=== PATIENT | male | born 1985 | race Caucasian/White ===

== ENCOUNTER 2017-08-19 20:47 | Emergency (ER) | payer BC, OTHER ==
[2017-08-19 21:18] VITALS: RESP 18
[2017-08-19] MEDS ORDERED: cefTRIAXone 1,000 MG VIAL (IM USE) IM STA (21:36)
--- NOTE | 2017-08-19 21:44 | ED ---
Recheck HPI - General Chief Complaint: Recheck/Abnormal Lab/Rx Stated Complaint: Left Arm Laceration/Infection Time Seen by Provider: 08/19/17 21:24 Source: patient, RN notes reviewed Mode of arrival: ambulatory Limitations: no limitations - History of Present Illness Initial Comments: This is a 31-year-old male who presents to the emergency department with chief complaint of left forearm infection. Patient states that approximately 10-12 days ago he sustained some abrasions to his left forearm from fiberglass material. On he noticed that the abrasions had become swollen and red so he cleaned and covered them. He states that the swelling and redness went down on Sunday, however on Sunday it had become swollen again. He presented to physician's office and was started on Bactrim. Patient states that he has taken four Bactrim pills thus far and was told to present to the emergency department if redness increased. Patient states that today he noticed that redness has spread up his arm. Denies any fevers or chills, abdominal pain, nausea or vomiting, chest pain or shortness of breath. - Related Data Home Medications Medication Instructions Recorded Confirmed Dextroamphetamine/Amphetamine 20 mg PO BID 08/19/17 08/19/17 [Adderall] Sulfamethox-Tmp 800-160Mg [Bactrim 1 tab PO Q12HR 08/19/17 08/19/17 DS 800-160 mg] Allergies Allergy/AdvReac Type Severity Reaction Status Date / Time No Known Allergies Allergy Verified 08/19/17 21:39 Review of Systems ROS Statement: Those systems with pertinent positive or pertinent negative responses have been documented in the HPI. ROS Other: All systems not noted in ROS Statement are negative. Past Medical History Past Medical History: No Reported History History of Any Multi-Drug Resistant Organisms: None Reported Past Surgical History: No Surgical Hx Reported Past Psychological History: No Psychological Hx Reported Smoking Status: Never smoker Past Alcohol Use History: Occasional Past Drug Use History: None Reported General Exam - General Exam Comments Initial Comments: General: Awake and alert, well-developed; in no apparent distress. HEENT: Head atraumatic, normocephalic. Pupils are equal, round and reactive to light. Extraocular movements intact. Oropharynx moist without erythema or exudate. Neck: Supple. Normal ROM. Cardiovascular: Regular rate and rhythm. No murmurs, rubs or gallops. Chest symmetrical. Respiratory: Lungs clear to auscultation bilaterally. No wheezes, rales or rhonchi. Normal respiratory effort with no use of accessory muscles. Musculoskeletal: Normal ROM, strength 5/5 bilateral upper and lower extremities. Ambulating normally. Sensation is intact and radial pulses are 2 + equal and palpable bilaterally. Skin: Patient has an area of erythema at proximal left forearm with a 5 cm in diameter area of cellulitis that is indurated on palpation. There is a central ulceration of this lesion. There is some erythema and tenderness of patient's elbow and extends to bicep. There is a superficial abrasion at the elbow. Neurological: Alert and oriented x3. CN II-XII grossly intact. Speech is fluent and answers are appropriate. No focal neuro deficits. Psychiatric: Normal mood and affect. No overt signs of depression or anxiety noted. Limitations: no limitations Course Vital Signs 08/19/17 21:14 Temperature 98.3 F Pulse Rate 87 Respiratory 18 Rate Blood Pressure 126/86 O2 Sat by Pulse 100 Oximetry Medical Decision Making - Medical Decision Making This is a 31-year-old male who presents to the emergency department with chief complaint of left arm infection. Patient does have cellulitis noted to the left forearm with no areas of fluctuance. Patient is currently taking Bactrim and has had 4 pills thus far. CBC revealed a white blood cell count of 10.9 with no left shift. CMP was unremarkable. Patient was given 2 g IV Rocephin while in the emergency department. Vital signs are stable and he is afebrile. Patient will be discharged home with recommendation to continue taking his full course of Bactrim and apply warm compresses. Return parameters were discussed. Patient is in agreement with plan and voices understanding. All questions were answered. - Lab Data Result diagrams: 08/19/17 21:47 08/19/17 21:47 Lab Results 08/19/17 08/19/17 Range/Units 21:47 21:47 WBC 10.9 H (3.8-10.6) k/uL RBC 4.89 (4.30-5.90) m/uL Hgb 15.6 (13.0-17.5) gm/dL Hct 45.2 (39.0-53.0) % MCV 92.3 (80.0-100.0) fL MCH 31.9 (25.0-35.0) pg MCHC 34.6 (31.0-37.0) g/dL RDW 11.8 (11.5-15.5) % Plt Count 306 (150-450) k/uL Neutrophils % 70 % Lymphocytes % 18 % Monocytes % 6 % Eosinophils % 4 % Basophils % 1 % Neutrophils # 7.6 (1.3-7.7) k/uL Lymphocytes # 1.9 (1.0-4.8) k/uL Monocytes # 0.7 (0-1.0) k/uL Eosinophils # 0.4 (0-0.7) k/uL Basophils # 0.1 (0-0.2) k/uL Sodium 139 (137-145) mmol/L Potassium 3.9 (3.5-5.1) mmol/L Chloride 101 (98-107) mmol/L Carbon Dioxide 26 (22-30) mmol/L Anion Gap 12 mmol/L BUN 12 (9-20) mg/dL Creatinine 0.90 (0.66-1.25) mg/dL Est GFR (MDRD) Af Amer >60 (>60 ml/min/1.73 sqM) Est GFR (MDRD) Non-Af >60 (>60 ml/min/1.73 sqM) Glucose 91 (74-99) mg/dL Calcium 9.7 (8.4-10.2) mg/dL Total Bilirubin 0.6 (0.2-1.3) mg/dL AST 57 (17-59) U/L ALT 126 H (21-72) U/L Alkaline Phosphatase 94 (38-126) U/L Total Protein 7.3 (6.3-8.2) g/dL Albumin 4.5 (3.5-5.0) g/dL Disposition Clinical Impression: Cellulitis of left forearm Disposition: HOME SELF-CARE Condition: Good Instructions: Cellulitis (ED) Additional Instructions: Please continue taking full course of Bactrim. Please take medications as prescribed. Please follow up with primary care provider within 1-2 days. Return to emergency department if symptoms should worsen or any concerns arise. Return to the emergency department if you develop any fevers or chills. Referrals: None,Stated [Primary Care Provider] - 1-2 days Time of Disposition: 22:41
[2017-08-19] MEDS ORDERED: cefTRIAXone IN SWFI 2,000 MG/20 ML SYRINGE IVP STA (21:51)
[2017-08-19 22:00] LABS: Basophils # (A) 0.1 k/uL (0-0.2); Basophils % (A) 1 %; Eosinophils # (A) 0.4 k/uL (0-0.7); Eosinophils % (A) 4 %; HCT 45.2 % (39.0-53.0); HGB 15.6 gm/dL (13.0-17.5); Lymphocytes # (A) 1.9 k/uL (1.0-4.8); Lymphocytes % (A) 18 %; MCH 31.9 pg (25.0-35.0); MCHC 34.6 g/dL (31.0-37.0); MCV 92.3 fL (80.0-100.0); Mean Platelet Volume 7.4; Monocytes # (A) 0.7 k/uL (0-1.0); Monocytes % (A) 6 %; Neutrophils # (A) 7.6 k/uL (1.3-7.7); Neutrophils % (A) 70 %; Platelet Count 306 k/uL (150-450); RBC 4.89 m/uL (4.30-5.90); RDW 11.8 % (11.5-15.5); WBC 10.9 k/uL (3.8-10.6)
[2017-08-19 22:15] LABS: ALT 126 U/L (21-72); AST 57 U/L (17-59); Albumin 4.5 g/dL (3.5-5.0); Alkaline Phosphatase 94 U/L (38-126); Anion Gap 12 mmol/L; Blood Urea Nitrogen 12 mg/dL (9-20); Calcium 9.7 mg/dL (8.4-10.2); Carbon Dioxide 26 mmol/L (22-30); Chloride 101 mmol/L (98-107); Glucose 91 mg/dL (74-99); Potassium 3.9 mmol/L (3.5-5.1); Sodium 139 mmol/L (137-145); Total Bilirubin 0.6 mg/dL (0.2-1.3); Total Protein 7.3 g/dL (6.3-8.2)
[2017-08-19 22:55] VITALS: BP 140/94; PULSE 95; TEMP 98.4
== END 2017-08-19 22:54 | disposition home or self-care (01) ==
LOC: EC 20:47
DX: L03.114 Cellulitis of left upper limb (principal); S50.312A Abrasion of left elbow, initial encounter; Z79.899 Other long term (current) drug therapy
CPT/HCPCS: 36415; 80053; 85025; 87040; 99283; 96374; J0696

== ENCOUNTER 2017-08-21 18:54 | Emergency (ER) | payer BC, OTHER ==
[2017-08-21 19:37] VITALS: RESP 18
[2017-08-21 20:03] LABS: Basophils # (A) 0.1 k/uL (0-0.2); Basophils % (A) 1 %; Eosinophils # (A) 0.2 k/uL (0-0.7); Eosinophils % (A) 3 %; HCT 44.8 % (39.0-53.0); HGB 16.1 gm/dL (13.0-17.5); Lymphocytes # (A) 1.8 k/uL (1.0-4.8); Lymphocytes % (A) 21 %; MCH 32.9 pg (25.0-35.0); MCHC 35.9 g/dL (31.0-37.0); MCV 91.6 fL (80.0-100.0); Mean Platelet Volume 7.1; Monocytes # (A) 0.6 k/uL (0-1.0); Monocytes % (A) 7 %; Neutrophils # (A) 5.4 k/uL (1.3-7.7); Neutrophils % (A) 65 %; Platelet Count 359 k/uL (150-450); RBC 4.89 m/uL (4.30-5.90); RDW 11.6 % (11.5-15.5); WBC 8.3 k/uL (3.8-10.6)
[2017-08-21 20:12] LABS: ALT 114 U/L (21-72); AST 55 U/L (17-59); Albumin 4.5 g/dL (3.5-5.0); Alkaline Phosphatase 96 U/L (38-126); Anion Gap 12 mmol/L; Blood Urea Nitrogen 15 mg/dL (9-20); Carbon Dioxide 28 mmol/L (22-30); Chloride 100 mmol/L (98-107); Glucose 101 mg/dL (74-99); Potassium 4.3 mmol/L (3.5-5.1); Sodium 140 mmol/L (137-145); Total Bilirubin 0.4 mg/dL (0.2-1.3); Total Protein 7.5 g/dL (6.3-8.2)
--- NOTE | 2017-08-21 21:39 | ED ---
Skin/Abscess/FB HPI - General Chief complaint: Skin/Abscess/Foreign Body Stated complaint: Infection-[facility] Time Seen by Provider: 08/21/17 20:35 Source: patient Mode of arrival: ambulatory Limitations: no limitations - History of Present Illness Initial comments: This 31-year-old white male presents with a complaint of a left forearm infection. He states that this started approximately 5 days ago. He apparently scraped it while at work. He developed some increased swelling and erythema. He was placed on some Bactrim by primary care physician. He also was seen in the emergency department 2 days ago for evaluation and they recommended that he continue with the Bactrim. He denies any fevers or chills. He states that he has had some purulent drainage and continued redness and mild swelling and mild pain. No other complaints or modifying factors. - Related Data Home Medications Medication Instructions Recorded Confirmed Dextroamphetamine/Amphetamine 20 mg PO BID 08/19/17 08/21/17 [Adderall] Sulfamethox-Tmp 800-160Mg [Bactrim 1 tab PO Q12HR 08/19/17 08/21/17 DS 800-160 mg] Previous Rx's Medication Instructions Recorded Cephalexin [Keflex] 500 mg PO Q6HR #40 cap 08/21/17 Allergies Allergy/AdvReac Type Severity Reaction Status Date / Time No Known Allergies Allergy Verified 08/21/17 20:45 Review of Systems ROS Statement: Those systems with pertinent positive or pertinent negative responses have been documented in the HPI. ROS Other: All systems not noted in ROS Statement are negative. Past Medical History Past Medical History: No Reported History History of Any Multi-Drug Resistant Organisms: None Reported Past Surgical History: No Surgical Hx Reported Past Psychological History: No Psychological Hx Reported Smoking Status: Never smoker Past Alcohol Use History: Occasional Past Drug Use History: None Reported General Exam Limitations: no limitations Extremities exam: Present: full ROM Neurological exam: Present: alert, oriented X3. Absent: motor sensory deficit Psychiatric exam: Present: normal affect, normal mood Skin exam: Present: other (There is a 3 cm x 3 cm area of swelling noted to the left mid forearm with associated erythema and mild fluctuance. There is mild necrosis noted in the middle of the wound.) Course Vital Signs 08/21/17 19:33 Temperature 97.5 F L Pulse Rate 89 Respiratory 18 Rate Blood Pressure 120/84 O2 Sat by Pulse 99 Oximetry Medical Decision Making - Medical Decision Making The patient was seen and examined. Old records are reviewed. The area was anesthetized with lidocaine under sterile conditions. The patient received approximately 5 mL of lidocaine via field block. The wound was explored and the area of necrosis was removed from the middle of the wound. A small amount of purulence was expressed. It is felt as though he does have a abscess with associated cellulitis. It is felt as though he benefit from addition of Keflex as well to his current antibiotic regimen. His wound was dressed and anicteric ointment is applied. He understands agrees with findings disposition and leaves in no distress. - Lab Data Result diagrams: 08/21/17 19:44 08/21/17 19:44 Lab Results 08/21/17 08/21/17 08/21/17 Range/Units 19:44 19:44 19:44 WBC 8.3 (3.8-10.6) k/uL RBC 4.89 (4.30-5.90) m/uL Hgb 16.1 (13.0-17.5) gm/dL Hct 44.8 (39.0-53.0) % MCV 91.6 (80.0-100.0) fL MCH 32.9 (25.0-35.0) pg MCHC 35.9 (31.0-37.0) g/dL RDW 11.6 (11.5-15.5) % Plt Count 359 (150-450) k/uL Neutrophils % 65 % Lymphocytes % 21 % Monocytes % 7 % Eosinophils % 3 % Basophils % 1 % Neutrophils # 5.4 (1.3-7.7) k/uL Lymphocytes # 1.8 (1.0-4.8) k/uL Monocytes # 0.6 (0-1.0) k/uL Eosinophils # 0.2 (0-0.7) k/uL Basophils # 0.1 (0-0.2) k/uL Sodium 140 (137-145) mmol/L Potassium 4.3 (3.5-5.1) mmol/L Chloride 100 (98-107) mmol/L Carbon Dioxide 28 (22-30) mmol/L Anion Gap 12 mmol/L BUN 15 (9-20) mg/dL Creatinine 1.00 (0.66-1.25) mg/dL Est GFR (CKD-EPI)AfAm >90 (>60 ml/min/1.73 sqM) Est GFR (CKD-EPI)NonAf >90 (>60 ml/min/1.73 sqM) Glucose 101 H (74-99) mg/dL Plasma Lactic Acid Kevin 1.0 (0.7-2.0) mmol/L Calcium 10.0 (8.4-10.2) mg/dL Total Bilirubin 0.4 (0.2-1.3) mg/dL AST 55 (17-59) U/L ALT 114 H (21-72) U/L Alkaline Phosphatase 96 (38-126) U/L Total Protein 7.5 (6.3-8.2) g/dL Albumin 4.5 (3.5-5.0) g/dL Disposition Clinical Impression: Abscess, Cellulitis Disposition: HOME SELF-CARE Condition: Good Instructions: Abscess Incision and Drainage (ED), Cellulitis (ED) Additional Instructions: Please continue the Bactrim until completed. Prescriptions: Cephalexin [Keflex] 500 mg PO Q6HR #40 cap Referrals: None,Stated [Primary Care Provider] - 1-2 days Time of Disposition: 21:39
[2017-08-21] MEDS ORDERED: BACITRACIN 500 UNIT/GM OINT 28.4 GM TUBE TOPICAL ONE (21:40)
[2017-08-21 21:59] VITALS: BP 136/85; PULSE 95; TEMP 98.8
== END 2017-08-21 22:08 | disposition home or self-care (01) ==
LOC: EC 18:54
DX: L03.114 Cellulitis of left upper limb (principal); Z79.899 Other long term (current) drug therapy
CPT/HCPCS: 36415; 80053; 83605; 85025; 87040; 99283